=== PATIENT | female | born 1980 | race Caucasian/White ===

== ENCOUNTER 2021-03-13 22:42 | Emergency (ER) | payer BC ==
[~2021-03-13 22:42] MED LIST: COLACE 100MG C100 MG PO; HYDROCODON-ACE1 EAC4 PO; SYNTHROID50 MCG PO
[2021-03-14 01:32] LABS: HEMOGLOBIN 12.2 gm/dl (12.3-15.3); RED BLOOD COUNT 4.4 M/UL (4.00-5.10); WHITE BLOOD COUNT 3.8 K/UL (4.5-11.0)
[2021-03-14 02:07] LABS: BUN/CREATININE RATIO 22 (0-10)
== END 2021-03-14 03:38 | disposition home or self-care (01) ==
LOC: ER1 22:42
PROVIDERS: Physician Assistant
DX: U07.1 COVID-19 (principal)
CPT/HCPCS: 71045; 80053; 82550; 82553; 83735; 83874; 83880; 84439; 84443; 84484; 85025; 85610; 85730; 93005; 99285; U0002